=== PATIENT | male | born 1955 | race Caucasian/White ===

== ENCOUNTER 2017-05-03 00:12 | Inpatient (IN) ==
[2017-05-03] MEDS ORDERED: Ondansetron 4 MG/2 ML VIAL IVP PRN (00:49)
[2017-05-03] MEDS ORDERED: Acetaminophen 325 MG TABLET PO PRN (00:49)
[2017-05-03] MEDS ORDERED: *HR* Morphine 2 MG/ML SYRINGE IVP PRN (00:49)
[2017-05-03] MEDS ORDERED: Naloxone 0.4 MG/ML INJ IVP PRN (00:49)
--- NOTE | 2017-05-03 01:01 | Internal Med History&Physical ---
Date of Encounter: 05/03/17 Time of Encounter: 00:59 Assessment and Plan (1) Sepsis Current visit: Yes Status: Acute Patient has high fever with leukocytosis and elevated renal creatinine. Lactic acid is positive. He fulfills the criteria for SIRS. We plan to treat him with IV antibiotics and IV fluid repeat his CBC and wait for his blood and urine cultures. Qualifiers: Sepsis type: sepsis due to unspecified organism Qualified Code(s): A41.9 - Sepsis, unspecified organism (2) UTI (urinary tract infection) Current visit: No Status: Acute Patient has presented with UTI along with fever and leukocytosis. ER physician did not feel the need of any imaging study and thinks this is simple pyelonephritis. We will start IV Rocephin while blood cultures and urine cultures been drawn. Repeat CBC in the morning Qualifiers: Urinary tract infection type: site unspecified Hematuria presence: without hematuria Qualified Code(s): N39.0 - Urinary tract infection, site not specified (3) Acute kidney injury Current visit: Yes Status: Acute Start IV hydration. Repeat renal function in the morning (4) Hypokalemia Current visit: Yes Status: Acute Potassium given in ER recheck potassium in the morning patient is on IV fluid Internal Medicine - H&P: HPI Chief complaint: Fever Admitted From: Home Plans for Post Hospital Care: Home History of present illness: Mr. Lal is a 61 year old male came into [facility] with fever as high as 105, complain of dysuria and abdominal pain. [facility] physician Abdominal pain is in the lower abdomen does not seem to radiate elsewhere no aggravating or relieving factors. His lactic acid was noted to 0.5 and later 2.2 in ER. Potassium was also noted below. Renal function mildly deranged. It was felt that he fulfills the criteria for sepsis and should be treated for his UTI as inpatient. Past Med Surg Social Fam HX - Past Medical History Medical history: cardiomyopathy, hypertension Psychiatric history: no psych history - Social History Smoking Status: Never smoker Smokeless Tobacco Status: No Alcohol use: none Drug use: none Internal Medicine - H&P: Meds Aspirin [Lo-Dose Aspirin EC] 81 mg PO DAILY 05/02/17 [History] Atorvastatin [Lipitor] 20 mg PO DAILY 05/02/17 [History] Metoprolol [Lopressor] 1 tab PO BID 05/02/17 [History] Potassium 20 meq PO DAILY 05/02/17 [History] amLODIPine [Norvasc] 10 mg PO DAILY 05/02/17 [History] 3 Allergy/AdvReac Type Severity Reaction Status Date / Time No Known Allergies Allergy Verified 05/02/17 18:34 All Systems PM: A 10-system review of systems was performed and is negative for pertinent findings except as documented above in the HPI. - Constitutional Constitutional: fever(s), no chills, no night sweats - EENT Eyes: no change in vision, no discharge, no pain, no photophobia Ears: no ear discharge, no ear pain, no tinnitus Nose, mouth and throat: no dysphagia, no nasal discharge, no neck pain, no sore throat - Cardiovascular Cardiovascular ROS IM: no chest pain, no diaphoresis, no dyspnea, no lightheadedness, no palpitations, no syncope - Respiratory Respiratory: no cough, no dyspnea, no wheezing, no excessive phlegm production - Gastrointestinal Gastrointestinal: no abdominal pain, no diarrhea, no hematemesis, no hematochezia, no melena, no nausea, no vomiting - Musculoskeletal Musculoskeletal ROS IM: no numbness, no tingling - Integumentary Integumentary IM: no rash, no unusual bruising - Neurological Neurological ROS: no confusion, no convulsions, no focal weakness, no numbness, no tingling, no tremor(s) - Hematologic/Lymphatic Hematologic/Lymphatic: no easy bruising - Constitutional Vitals: Temp Pulse Resp BP Pulse Ox 98.4 F 89 18 118/71 96 05/03/17 00:42 05/03/17 00:42 05/03/17 00:42 05/03/17 00:42 05/03/17 00:42 General appearance: Present: A&O X 3, pleasant, no acute distress, answers questions appropriately - Head Head exam: Present: atraumatic, normocephalic - Eye Eye exam: Present: PERRL, conjuntiva pink, sclera anicteric Pupils: Present: PERRL - Neck Neck exam general surgery: Present: supple, trachea midline. Absent: lymphadenopathy - Respiratory Respiratory exam: Present: CTAB. Absent: accessory muscle use, rales, rhonchi, wheezes - Cardiovascular Cardiovascular exam: Present: RRR, +S1, +S2. Absent: diastolic murmur, gallop, rubs, systolic murmur - GI/Abdominal GI/Abdominal exam: Present: normal bowel sounds, soft, no peritoneal signs. Absent: distended, tenderness - Extremities Exam Extremities exam: Present: warm, radial pulses palpable and symmetrical. Absent : calf tenderness, cyanotic, pedal edema - Neurological Exam Neurological exam: Present: CN II-XII intact, oriented X3, no focal deficits. Absent: pronater drift, facial droop, speech deficit - Skin Skin exam: Present: dry, intact
[2017-05-03] MEDS: 0.9 % Sodium Chloride 1,000 ML IVC SCH ×2 (01:33→09:20)
[2017-05-03 05:36] LABS: Hematocrit 35.2 % (37.5-50.1); Hemoglobin 12.2 g/dL (12.9-16.9); Mean Corpuscular HGB Conc 34.7 g/dL (31.6-35.5); Mean Corpuscular Hemoglobin 31.5 pg (28.0-33.3); Mean Platelet Volume 9.8 fL (9.4-12.4); Platelet Count 147 K/mcL (140-400); Red Blood Count 3.87 M/mcL (4.19-5.50); Red Cell Distribution Width 12.9 % (11.5-14.5)
[2017-05-03 05:53] LABS: Alanine Aminotransferase 22 Units/L (0-55); Albumin 3.1 g/dL (3.5-5.0); Albumin/Globulin Ratio 1.2 (1.1-2.2); Alkaline Phosphatase 72 Units/L (38-126); Aspartate Amino Transferase 19 Units/L (5-34); BUN/Creatinine Ratio 24 (6-26); Bilirubin,Total 1.3 mg/dL (0.2-1.2); Blood Urea Nitrogen 20 mg/dL (8-26); Carbon Dioxide 23 mEq/L (19-29); Chloride 110 mEq/L (98-109); Globulin 2.6 g/dL (2.4-3.5); Glucose 135 mg/dL (70-99); Osmolality,Calculated 293 (280-300); Potassium 3.5 mEq/L (3.5-4.5); Sodium 139 mEq/L (136-145); Total Protein 5.7 g/dL (6.0-8.3); eGFR For African Americans > 60 (> 60); eGFR For Non-African Americans > 60 (> 60)
[2017-05-03 06:10] LABS: Lymphocytes # 0.9 K/mcL (0.6-4.6); Monocytes # 0.9 K/mcL (0.0-1.3); Neutrophils # 19.9 K/mcL (1.6-8.9)
[2017-05-03 06:11] LABS: Platelet Estimate Normal (Normal)
[2017-05-03] MEDS: Aspirin Enteric Coated 81 MG Tablet PO SCH (11:05)
[2017-05-03] MEDS: Piperacillin/Tazobactam 3.375 GM in D5% in Water (Mini-Bag+) 100 ML IVPB SCH ×2 (11:05→18:37)
--- NOTE | 2017-05-03 14:41 | Event Note ---
Date of Encounter: 05/03/17 Time of Encounter: 14:38 Patient is a 61yo male admitted for sepsis secondary to UTI. He was transferred from [facility] for admission for sepsis secondary to UTI Patient seen and examined with present at bedside. reports of passing a renal stone earlier today. Stone was sent to lab for analysis Pt states he feels significantly better since his admission will continue IV fluids, IV zosyn f/u urine cultures (drawn at outside facility prior to be admitted) f/u blood cultures Resumed home medications
[2017-05-03 15:20] LABS: Basophils % 0.1 %; Hematocrit 34.4 % (37.5-50.1); Immature Granulocytes % 0.7 % (0-4); Mean Corpuscular HGB Conc 34.9 g/dL (31.6-35.5); Mean Corpuscular Hemoglobin 31.9 pg (28.0-33.3); Mean Corpuscular Volume 91.5 fL (83.0-100.0); Mean Platelet Volume 9.7 fL (9.4-12.4); Monocytes # 0.8 K/mcL (0.0-1.3); Neutrophils # 18.2 K/mcL (1.6-8.9); Platelet Count 143 K/mcL (140-400); Red Blood Count 3.76 M/mcL (4.19-5.50); Red Cell Distribution Width 13.2 % (11.5-14.5); Segmented Neutrophils % 90.2 %
[2017-05-04] MEDS: 0.9 % Sodium Chloride 1,000 ML IVC SCH ×2 (01:27→01:38)
[2017-05-04] MEDS: Piperacillin/Tazobactam 3.375 GM in D5% in Water (Mini-Bag+) 100 ML IVPB SCH ×3 (03:25→18:57)
[2017-05-04 06:19] LABS: Basophils % 0.2 %; Eosinophils # 0.1 K/mcL (0.0-0.6); Eosinophils % 0.4 %; Hematocrit 32.6 % (37.5-50.1); Hemoglobin 10.9 g/dL (12.9-16.9); Immature Granulocytes % 0.6 % (0-4); Lymphocytes # 1.3 K/mcL (0.6-4.6); Lymphocytes % 9.2 %; Mean Corpuscular HGB Conc 33.4 g/dL (31.6-35.5); Mean Corpuscular Hemoglobin 30.8 pg (28.0-33.3); Mean Corpuscular Volume 92.1 fL (83.0-100.0); Mean Platelet Volume 10.8 fL (9.4-12.4); Monocytes # 0.8 K/mcL (0.0-1.3); Monocytes % 5.9 %; Neutrophils # 11.7 K/mcL (1.6-8.9); Platelet Count 131 K/mcL (140-400); Red Blood Count 3.54 M/mcL (4.19-5.50); Red Cell Distribution Width 13.3 % (11.5-14.5); Segmented Neutrophils % 83.7 %
[2017-05-04 06:35] LABS: BUN/Creatinine Ratio 27 (6-26); Blood Urea Nitrogen 22 mg/dL (8-26); Calcium 8.1 mg/dL (8.6-10.8); Carbon Dioxide 23 mEq/L (19-29); Chloride 111 mEq/L (98-109); Glucose 112 mg/dL (70-99); Magnesium 1.7 mg/dL (1.6-2.6); Osmolality,Calculated 294 (280-300); Phosphorous 2.4 mg/dL (2.3-4.7); Potassium 3.3 mEq/L (3.5-4.5); Sodium 140 mEq/L (136-145); eGFR For African Americans > 60 (> 60); eGFR For Non-African Americans > 60 (> 60)
[2017-05-04] MEDS: amLODIPine 5 MG TABLET PO SCH (08:39)
[2017-05-04] MEDS: Aspirin Enteric Coated 81 MG Tablet PO SCH (08:40)
--- NOTE | 2017-05-04 13:06 | Internal Med Progress Note ---
Date of Encounter: 05/04/17 Time of Encounter: 13:04 - Assessment and plan (1) Sepsis Current Visit: Yes Status: Resolved Assessment and plan: Improved WBC started trending down cont empirical abx Will try to obtain blood cx fro [facility] and Urine cx results from Urgent care center Qualifiers: Sepsis type: sepsis due to unspecified organism Qualified Code(s): A41.9 - Sepsis, unspecified organism (2) UTI (urinary tract infection) Current Visit: No Status: Acute Assessment and plan: Cont broad spec abx Qualifiers: Urinary tract infection type: site unspecified Hematuria presence: without hematuria Qualified Code(s): N39.0 - Urinary tract infection, site not specified (3) Renal calculi Current Visit: Yes Status: Acute Assessment and plan: He did passes the stone y/d which was sent for analysis Since he did not have CT scan done in last 5 yrs and he does have recurrent renal stones will get a CT of Abd / Pelvis now for further eval Also recommend to f/u with Urologist as an out pt (4) Hypokalemia Current Visit: Yes Status: Acute Assessment and plan: Will replace (5) Acute kidney injury Current Visit: Yes Status: Acute Assessment and plan: Improved due to sepsis + Obstructive uropathy - Subjective Interval history: Mr. Lal is a 61 year old male came into [facility] with fever as high as 105, complain of dysuria and abdominal pain. Pt was admitted here for Sepsis with UTi and renal calculi. Pt was started on empirical abx Zosyn, his symptoms improved now, remained afebrile. Tolerating PO intake well, no more nausea / vomiting. - Constitutional Vitals: Temp Pulse Resp BP Pulse Ox 98.5 F 75 16 146/80 95 05/04/17 10:59 05/04/17 10:59 05/04/17 10:59 05/04/17 10:59 05/04/17 10:59 General appearance: Present: A&O X 3, pleasant, no acute distress, answers questions appropriately - Head Head exam: Present: atraumatic, normal inspection - Respiratory Respiratory exam: Present: CTAB. Absent: accessory muscle use, rales, rhonchi, wheezes - Cardiovascular Cardiovascular exam: Present: RRR, +S1, +S2. Absent: diastolic murmur, gallop, rubs, systolic murmur - GI/Abdominal GI/Abdominal exam: Present: soft, no peritoneal signs. Absent: distended, tenderness - Back Exam Back exam: Absent: CVA tenderness (L), CVA tenderness (R) - Neurological Exam Neurological exam: Present: alert, oriented X3 - Psychiatric Psychiatric exam: Present: normal affect, normal mood Internal Medicine: Result - Labs CBC & Chem 7: 05/04/17 05:17 05/04/17 05:17 Labs: Short CBC 05/03/17 05/04/17 Range/Units 15:09 05:17 WBC 20.2 H 14.0 H (4.3-11.1) K/mcL Hgb 12.0 L 10.9 L (12.9-16.9) g/dL Hct 34.4 L 32.6 L (37.5-50.1) % Plt Count 143 131 L (140-400) K/mcL Neutrophils # 18.2 H 11.7 H (1.6-8.9) K/mcL BMP 05/04/17 05:17 Sodium 140 Potassium 3.3 L Chloride 111 H Carbon Dioxide 23 BUN 22 Creatinine 0.82 Glucose 112 H Calcium 8.1 L - VTE Documentation of Mechanical Device: Intermittent pneumatic compression device Consult Discharge Plan - Plan Referrals: Maura Baker MD [Primary Care Provider] -
[2017-05-05] MEDS: Piperacillin/Tazobactam 3.375 GM in D5% in Water (Mini-Bag+) 100 ML IVPB SCH ×2 (03:22→11:13)
[2017-05-05 06:24] LABS: Basophils % 0.3 %; Eosinophils # 0.2 K/mcL (0.0-0.6); Eosinophils % 1.8 %; Hematocrit 34.3 % (37.5-50.1); Immature Granulocytes % 0.3 % (0-4); Lymphocytes # 1.6 K/mcL (0.6-4.6); Lymphocytes % 16.7 %; Mean Corpuscular Hemoglobin 31.8 pg (28.0-33.3); Mean Platelet Volume 10.1 fL (9.4-12.4); Monocytes # 0.7 K/mcL (0.0-1.3); Neutrophils # 7.1 K/mcL (1.6-8.9); Platelet Count 142 K/mcL (140-400); Red Blood Count 3.77 M/mcL (4.19-5.50); Red Cell Distribution Width 13.2 % (11.5-14.5); Segmented Neutrophils % 73.9 %
[2017-05-05 06:37] LABS: BUN/Creatinine Ratio 15 (6-26); Calcium 8.7 mg/dL (8.6-10.8); Carbon Dioxide 26 mEq/L (19-29); Chloride 109 mEq/L (98-109); Glucose 87 mg/dL (70-99); Osmolality,Calculated 289 (280-300); Potassium 3.3 mEq/L (3.5-4.5); Sodium 140 mEq/L (136-145); eGFR For African Americans > 60 (> 60); eGFR For Non-African Americans > 60 (> 60)
[2017-05-05 06:38] LABS: Blood Urea Nitrogen 11 mg/dL (8-26)
[2017-05-05] MEDS: Aspirin Enteric Coated 81 MG Tablet PO SCH (08:28)
[2017-05-05] MEDS: amLODIPine 5 MG TABLET PO SCH (08:28)
--- NOTE | 2017-05-05 10:54 | Discharge Summary ---
Date of Encounter: 05/05/17 Time of Encounter: 10:50 - Discharge Diagnosis (1) Sepsis Priority: Primary Status: Resolved Qualifiers: Sepsis type: sepsis due to unspecified organism Qualified Code(s): A41.9 - Sepsis, unspecified organism (2) UTI (urinary tract infection) Priority: Primary Status: Acute Qualifiers: Urinary tract infection type: acute cystitis Hematuria presence: without hematuria Qualified Code(s): N30.00 - Acute cystitis without hematuria (3) Renal calculi Priority: Primary Status: Acute (4) Hypokalemia Priority: Secondary Status: Acute (5) Acute kidney injury Priority: Secondary Status: Acute (6) BPH (benign prostatic hyperplasia) Priority: Secondary Status: Acute Qualifiers: Qualified Code(s): N40.0 - Benign prostatic hyperplasia without lower urinary tract symptoms (7) Essential hypertension Priority: Secondary Status: Acute - Discharge Medications Prescriptions: levoFLOXacin [Levofloxacin] 500 mg PO DAILY #5 tablet Saccharomyces Boulardii [Florastor] 250 mg PO BID #10 capsule Tamsulosin HCl [Flomax] 0.4 mg PO DAILY #30 cap.er.24h Home Medications: Aspirin [Lo-Dose Aspirin EC] 81 mg PO DAILY 05/02/17 [History] Atorvastatin [Lipitor] 20 mg PO DAILY 05/02/17 [History] Metoprolol [Lopressor] 1 tab PO BID 05/02/17 [History] Potassium Chloride [K-Tab ER] 20 meq PO DAILY 05/02/17 [History] amLODIPine [Norvasc] 10 mg PO DAILY 05/02/17 [History] Saccharomyces Boulardii [Florastor] 250 mg PO BID #10 capsule 05/05/17 [Rx] Tamsulosin HCl [Flomax] 0.4 mg PO DAILY #30 cap.er.24h 05/05/17 [Rx] levoFLOXacin [Levofloxacin] 500 mg PO DAILY #5 tablet 05/05/17 [Rx] Allergies/Adverse Reactions: 3 Allergy/AdvReac Type Severity Reaction Status Date / Time No Known Allergies Allergy Verified 05/02/17 18:34 Procedures/tests Complete & Pending: Procedures Performed prior 72 hours Category Date Time Status CT abd pelvis wo no iv no oral [CT] Routine Cat Scan 05/04/17 14:30 Completed Date of admission: 05/03/17 00:49 Primary care physician: Maura Baker MD - Patient Status Disposition: Home, Self-Care Condition: Good Overall status at discharge: patient is back to baseline - Discharge Instructions Follow Up With: Maura Baker MD [Primary Care Provider] - 08/10/17 4:40 pm Additional Instructions: please f/u with Urologist in one week for your BPH Ok to go back to work from Wednesday05/10/2017 - Diet and Activity Activity: increase activity as tolerated Diet: low salt diet Hospital course: Mr. Lal is a 61 year old male came into [facility] with fever as high as 105, complain of dysuria and abdominal pain. Pt was admitted here for severe sepsis with UTI and renal calculi. Pt was started on empirical abx Zosyn and aggressive IV hydration. His symptoms started improving slowly. His WBC started trending down and today normal @ 9.5. He remained afebrile through out this hospitalization. he did pass a renal calculi, which was sent for analysis here. His blood cx from [facility] did not grow any bacteria, however his Urine cx initially did grow julien sensitive Citrobacter. So switched him to PO Abx Levofloxacin for 5 more days. Also started him on Flomax for his BPH and recommend to f/u with Urologist as an out pt. - Time Spent with Patient Total time spent providing and/or coordinating discharge services: - Constitutional Vitals: Temp Pulse Resp BP Pulse Ox 98.2 F 76 18 137/74 97 05/05/17 08:20 05/05/17 10:36 05/05/17 10:36 05/05/17 10:36 05/05/17 10:36 General appearance: Present: A&O X 3, pleasant, no acute distress, answers questions appropriately - Head Head exam: Present: atraumatic, normal inspection - Respiratory Respiratory exam: Present: CTAB. Absent: accessory muscle use, rales, rhonchi, wheezes - Cardiovascular Cardiovascular exam: Present: RRR, +S1, +S2. Absent: diastolic murmur, gallop, rubs, systolic murmur - GI/Abdominal GI/Abdominal exam: Present: soft, no peritoneal signs. Absent: distended, tenderness - Extremities Exam Extremities exam: Absent: calf tenderness, pedal edema, tenderness - Neurological Exam Neurological exam: Present: alert, oriented X3 - Psychiatric Psychiatric exam: Present: normal affect, normal mood - VTE Documentation of Mechanical Device: Venous foot pump, device
[2017-05-05 16:41] VITALS: BP 141/78
== END 2017-05-05 17:38 | disposition home or self-care (01) | DRG 872 ==
LOC: 3NENU → SUATTDRO 00:49
PROVIDERS: ADMIT Internal Medicine; ATTEND Family Medicine